=== PATIENT | male | born 1985 | race African-American/Black ===

== ENCOUNTER 2016-10-20 03:04 | Inpatient (IN) | payer OTHER ==
--- NOTE | 2016-10-20 04:23 | PDOC ---
History of Present Illness - General History Source: Significant Other Exam Limitations: No Limitations, Other - History of Present Illness Initial Comments: 10/20/16 04:54 The patient is a 31 year old male with no significant past medical history who presents to the ED for nausea and vomiting prior to arrival. Patient is a poor historian as he is currently somewhat somnolent during presentation and h/o is obtained by patients girlfriend, at bedside. According to the girlfriend, patient was eating [employer] about 1 hour prior to arrival when he began to have a bilateral headache with nausea and subsequent vomiting x3 and nonbloody diarrhea. Denies abdominal pain. Patient also has complaints of SOB and left leg pain. States he has been hospitalized in 2008 for left leg cellulitis. Denies lightheadedness, diaphoresis, fever, chills, cough, or chest pain. Allergies: NKDA Social History: Current smoker (ppd). No alcohol or drug use reported. Past Surgical History: None reported PCP: None reported <Teena Samuel - Last Filed: 10/20/16 04:55> - General History Source: Patient <DonaldAlessandro nino - Last Filed: 10/20/16 06:27> - General Chief Complaint: Pain Stated Complaint: PAIN IN LEFT LEG Time Seen by Provider: 10/20/16 04:21 Past History <Teena Samuel - Last Filed: 10/20/16 04:55> - Psycho/Social/Smoking Cessation Hx Suicidal Ideation: No Smoking History: Current every day smoker Have you smoked in the past 12 months: Yes Number of Cigarettes Smoked Daily: 10 Information on smoking cessation initiated: Yes 'Breaking Loose' booklet given: 07/29/15 Hx Alcohol Use: No Drug/Substance Use Hx: No Substance Use Type: None <Alessandro Pemberton - Last Filed: 10/20/16 06:27> - Past Medical History Allergies/Adverse Reactions: Allergies Allergy/AdvReac Type Severity Reaction Status Date / Time shrimp Allergy Swelling Verified 10/20/16 04:20 Home Medications: Ambulatory Orders NK [No Known Home Medication] 05/06/16 Review of Systems - Review of Systems Able to Perform ROS?: Yes Comments:: 10/20/16 04:54 CONSTITUTIONAL: Absent: fever, no chills, no fatigue EYES: Absent: visual changes ENT: Absent: ear pain, no sore throat CARDIOVASCULAR: Absent: chest pain, no palpitations RESPIRATORY: +SOB Absent: cough GI: +nausea, vomiting, diarrhea Absent: abdominal pain, no constipation GENITOURINARY: Absent: dysuria, no frequency, no hematuria MUSCULOSKELETAL: +left leg pain Absent: back pain, no arthralgia SKIN: Absent: rash NEURO: +bilateral headache <Teena Samuel - Last Filed: 10/20/16 04:55> *Physical Exam - Vital Signs Last Vital Signs Temp Pulse Resp BP Pulse Ox 109 H 18 109/69 96 10/20/16 03:16 10/20/16 03:16 10/20/16 03:16 10/20/16 03:16 - Physical Exam Comments: 10/20/16 04:55 GENERAL: Well-appearing, well-nourished. No apparent distress. HEENT: Normocephalic, atraumatic. PERRL, EOM intact. CARDIOVASCULAR: Normal S1, S2. Regular rate and rhythm. PULMONARY: Clear to auscultation bilaterally. ABDOMEN: Soft, non-distended, non-tender. EXTREMITIES: Normal ROM in all four extremities. Mild left calf tenderness, erythematous, no open wounds, firm. No gross deformities. SKIN: Warm, dry. No rash NEUROLOGICAL: Somnolent, but arousable. No focal neurological deficits. <Teena Samuel - Last Filed: 10/20/16 04:55> - Vital Signs Last Vital Signs Temp Pulse Resp BP Pulse Ox 109 H 18 109/69 96 10/20/16 03:16 10/20/16 03:16 10/20/16 03:16 10/20/16 03:16 <Alessandro Pemberton - Last Filed: 10/20/16 06:27> ED Treatment Course - LABORATORY CBC & Chemistry Diagram: 10/20/16 04:42 10/20/16 04:42 - ADDITIONAL ORDERS Additional order review: 10/20/16 04:42 RBC 5.12 MCV 82.1 MCHC 32.5 RDW 13.9 MPV 7.1 L Neutrophils % 87.4 H D Lymphocytes % 6.3 L D Monocytes % 5.6 Eosinophils % 0.3 D Basophils % 0.4 <Teena Samuel - Last Filed: 10/20/16 04:55> - LABORATORY CBC & Chemistry Diagram: 10/20/16 04:42 10/20/16 04:42 <Alessandro Pemberton - Last Filed: 10/20/16 06:27> Medical Decision Making - Medical Decision Making 10/20/16 06:27 Dr. Pemberton: The scribe's documentation has been prepared under my direction and personally reviewed by me in its entirery. I confirm that the note above accurately reflects all work, treatment, procedures, and medical decision making performed by me. <Alessandro Pemberton - Last Filed: 10/20/16 06:27> *DC/Admit/Observation/Transfer - Attestations Scribe Attestion: 10/20/16 04:55 Documentation prepared by Teena Samuel, acting as manager medical writing for Alessandro Pemberton MD/DO. <Teena Samuel - Last Filed: 10/20/16 04:55> - Discharge Dispostion Admit: Yes <Alessandro Pemberton - Last Filed: 10/20/16 06:27> Diagnosis at time of Disposition: Left leg cellulitis
[2016-10-20] MEDS ORDERED: CEFAZOLIN 2 GM in DEXTROSE 5%-WATER - 50 ML IVPB ONE (04:27)
[2016-10-20] MEDS ORDERED: KETOROLAC TROMETHAMINE 30 MG/1 ML VIAL IVPUSH ONE ×2 (04:27→15:49)
[2016-10-20] MEDS ORDERED: KETOROLAC TROMETHAMINE 30 MG/1 ML VIAL ONE (04:34)
[2016-10-20] MEDS ORDERED: CEFAZOLIN (PRE-DOCKED) 50 ML IVPB ONE (04:34)
[2016-10-20 04:46] LABS: BASOPHIL 0.4 % (0-2.0); EOSINOPHIL 0.3 % (0-4.5); MCH 26.7 pg (25.7-33.7); MCHC 32.5 g/dl (32.0-35.9); MEAN CELL VOLUME 82.1 fl (80-96); MEAN PLT VOLUME 7.1 fl (7.5-11.1); NEUTROPHILS 87.4 % (42.8-82.8); PLATELET COUNT 256 K/MM3 (134-434); RDW 13.9 % (11.9-15.9); WHITE BLOOD COUNT 20.9 K/mm3 (4.0-10.0)
[2016-10-20] MEDS ORDERED: ONDANSETRON 4 MG/2 ML VIAL IVPUSH STA (04:47)
[2016-10-20 04:58] LABS: INR 1.14 (0.82-1.09); PROTHROMBIN TIME (PATIENT) 12.6 SEC (9.98-11.88)
[2016-10-20] MEDS ORDERED: ONDANSETRON 4 MG/2 ML VIAL ONE (05:02)
[2016-10-20 05:08] LABS: ALBUMIN 3.8 g/dl (3.4-5.0); ANION GAP 10 (8-16); BILIRUBIN,TOTAL 0.5 mg/dL (0.2-1.0); CO2 26 mmol/L (21-32); COCKROFT - GAULT 127.57; CREATININE 1.2 mg/dL (0.7-1.3); GLUCOSE,RANDOM 112 mg/dL (74-106); SGOT/AST 19 U/L (15-37); SGPT/ALT 35 U/L (12-78); TOT PROT 7.2 g/dl (6.4-8.2)
[2016-10-20 05:09] LABS: ALK PHOS 60 U/L (45-117)
--- NOTE | 2016-10-20 08:37 | HP ---
CHIEF COMPLAINT: " Left leg pain, nausea, vomiting" PCP: No PCP HISTORY OF PRESENT ILLNESS: Patient is a 31 year old male with significant past medical history of recurrent cellulitis of left leg presented to the ED with the chief complaints of severe left leg pain, nausea and vomiting. As per the patient, he was apparently well until yesterday evening, when he developed nausea and several episodes of vomiting soon after he ate chicken from [facility]. Vomitus was non projectile, non bilious, non bloody, containing mainly food particles. Patient mentions his girlfriend who ate the chicken vomited few times. Patient denies abdominal pain. Nausea and vomiting has resolved now in the ED. Had one episode of loose stool in the ER which didn't contain blood. Patient developed left leg pain last night that woke him up at 2am, pain started from the left thigh radiating pain was intermittent, non radiating, 10/ 10 in intensity, burning in nature, no relieving or aggravating factors. Didn't notice any change in the color of the leg. Since patient had cellulitis of the left leg in the past, he was worried he might have developed it again and came in to the ED this morning. Denies any tick bite, trauma, fungal infections. Did have chills, rigors and sweating but no fever, chest pain, sob, cough, palpitations. Bowel/Bladder habit normal. Sleep/Appetite normal prior the illness. ER course was notable for: (1) Afebrile, hemodynamically stable except for tachycardia, leukocytosis 20.9; H/H within normal limits (2) IV Cefazolin, Ketorolac, Zofran. Recent Travel: None PAST MEDICAL HISTORY: Recurrent h/o cellulitis of left leg. PAST SURGICAL HISTORY: None Social History: Smokinpack/day x teenager Alcohol: 1pint every alternate days. Drugs: Denies Family History: Mother: DM and HTN Allergies shrimp Allergy (Verified 10/20/16 04:20) Swelling HOME MEDICATIONS: Home Medications Medication Instructions Recorded NK [No Known Home Medication] 05/06/16 REVIEW OF SYSTEMS CONSTITUTIONAL: Present: chills, diaphoresis, rigors and sweating Absent: fever, generalized weakness, malaise, loss of appetite, weight change HEENT: Absent: rhinorrhea, nasal congestion, throat pain, throat swelling, difficulty swallowing, mouth swelling, ear pain, eye pain, visual changes CARDIOVASCULAR: Absent: chest pain, syncope, palpitations, irregular heart rate, lightheadedness , peripheral edema RESPIRATORY: Absent: cough, shortness of breath, dyspnea with exertion, orthopnea, wheezing, stridor, hemoptysis GASTROINTESTINAL: Present: nausea, vomiting Absent: abdominal pain, abdominal distension, diarrhea, constipation, melena, hematochezia GENITOURINARY: Absent: dysuria, frequency, urgency, hesitancy, hematuria, flank pain, genital pain MUSCULOSKELETAL: Present: Left leg pain Absent: myalgia, arthralgia, joint swelling, back pain, neck pain SKIN: Absent: rash, itching, pallor HEMATOLOGIC/IMMUNOLOGIC: Absent: easy bleeding, easy bruising, lymphadenopathy, frequent infections ENDOCRINE: Absent: unexplained weight gain, unexplained weight loss, heat intolerance, cold intolerance NEUROLOGIC: Absent: headache, focal weakness or paresthesias, dizziness, unsteady gait, seizure, mental status changes, bladder or bowel incontinence PSYCHIATRIC: Absent: anxiety, depression, suicidal or homicidal ideation, hallucinations. PHYSICAL EXAMINATION Vital Signs - 24 hr 10/20/16 06:52 Temperature 99.5 F GENERAL: Patient is a young male, lying comfortably in bed, Awake, alert, and fully oriented, in no acute distress. HEAD: Normal with no signs of trauma. EYES: EOM intact, no pallor or icterus EARS, NOSE, THROAT: Ears normal, nares patent, oropharynx clear without exudates. Moist mucous membranes. NECK: Normal range of motion, supple without lymphadenopathy, JVD, or masses. LUNGS: Breath sounds equal, clear to auscultation bilaterally. No wheezes, and no crackles. No accessory muscle use. HEART: Regular rate and rhythm, normal S1 and S2 without murmur, rub or gallop. ABDOMEN: Soft, nontender, not distended, normoactive bowel sounds, no guarding, no rebound, no masses. No hepatomegaly or splenomegaly. MUSCULOSKELETAL: Normal range of motion at all joints. No bony deformities or tenderness. No CVA tenderness. UPPER EXTREMITIES: 2+ pulses, warm, well-perfused. No cyanosis. No clubbing. No peripheral edema. RIGHT LOWER EXTREMITIES: 2+ pulses, warm, well-perfused. No calf tenderness. No peripheral edema. LEFT LOWER EXTREMITIES: Erythema starting from the mid calf to the left knee; increased warm as compared to the right leg; no wound, abrasions, slightly tender, slightly edematous calf, Homans sign negative, 2+ pulses, warm, well- perfused. NEUROLOGICAL: Cranial nerves II-XII intact. Normal speech. Gait not observed. PSYCHIATRIC: Cooperative. Good eye contact. Appropriate mood and affect. SKIN: Tattoos, Warm, dry, normal turgor, no rashes or lesions noted, normal capillary refill. ASSESSMENT/PLAN: Patient is a 31 year old male with significant past medical history of recurrent cellulitis of left leg presented to the ED with the chief complaints of severe left leg pain, nausea and vomiting. # Sepsis secondary to Cellulitis of the left leg Patient has a recurrent h/o cellulitis, developed pain of left leg last night , redness, swelling, slightly tender to palpation Afebrile, hemodynamically stable except for tachycardia, leukocytosis 20.9; H /H within normal limits Meets SIRS criteria In the ED, patient received IV Cefazolin, Ketorolac, Zofran. Admitted in Med-Surg IV NS @ 83 mls/hr IV Ampicillin/Sulbactam 1.5 gm Q6H Day 1 IV Clindamycin 300mg Q6H Day 1 Ordered [id number] ruled out diabetes is not the cause for recurrent cellulitis Blood culture pending HIV to be ordered after consent Urine toxicology pending In the past, patient didn't grow any microorganisms in the blood culture # Alcohol abuse Counseling and discussed in depth about cutting down. Thiamine IV 200mg stat and PO 100mg once in the evening. Thiamine 100mg PO daily from tomorrow Folic acid 1mg Daily # Active smoker Smoking cessation counseling Nicotine patch 21 daily # FEN IV NS @ 83mls/hr Electrolytes to be repeated tomorrow # Prophylaxis For DVT: Heparin 5000 u sq BID For GI: Not indicated # Code Status: Full Code # Dispo: Admitted in Med-Surg. Duration of stay unknown. Illness, Investigation and Plan of care explained to the patient. He verbalized understanding. Case discussed with Dr. Mcmanus. Visit type - Emergency Visit Emergency Visit: Yes ED Registration Date: 10/20/16 Care time: The patient presented to the Emergency Department on the above date and was hospitalized for further evaluation of their emergent condition. - New Patient This patient is new to me today: Yes Date on this admission: 10/20/16 - Critical Care Critical Care patient: No
--- NOTE | 2016-10-20 08:42 | PN ---
Teaching Attending Note Name of Resident: Shaheed Montes De Oca ATTENDING PHYSICIAN STATEMENT I saw and evaluated the patient. I reviewed the resident's note and discussed the case with the resident. I agree with the resident's findings and plan as documented. SUBJECTIVE: CC: L leg pain and swelling HPI: 31 y/o man with h/o L leg ellulitis x 2 before , and no other PMH , who presented with pain and swelling in L leg which started at 2 am last night . he had fever, chills and sweating on his way here, other than that no fever at home , . He denies any bites, cute, wounds or trauma to his leg. he had one episode of soft stool last night , no blood or abd pain . He drinks a bottle of hard liquor q 2 days , last drink was last night . smokes 1PPd OBJECTIVE: VS reviewed NAD , AAOx3. HEENT: MMM, no facial droop, has no LAP inneck. EOMI, round equal reactive Pupils CV: RRR, no MRG Lungs : CTAB Abd : soft, ND , nL BS , NT Ext : L leg with area or brownish discoloration , and increased warmth on anterior banks extending from below th eknee to above ankle , with involvement on lower posterior leg. no erythema or edema on RLE . DP 2+ b/l. L dorsal foot edema . no evidence of fungal infection among toes b/l. has dry skin on both feet ASSESSMENT AND PLAN: 31 y/o man with h/o L leg cellulitis x 2 before , and no other PMH , who presented with pain and swelling in L leg and was found to have sepsis from LLE cellulitis 1- Sepsis 2/2 LLE cellulitis : vital signs are stable. no evidence of discharge , or wounds. in past he had no positive cultures to guid our Abx treatment - check lactic acid - start IV abx, unasyn and clinda - follow blood cx done in ER. - gentle hydration till am 2- Alcohol dependence : no signs of withdrawal, will monitor for any signs give thiamine and folate and MVT 3-nicotine dependence : nicotine patch. counseled . 4- dispo : HLOC. wants to sign AMA in Am. explained risk of bacteremia, worsening sepsis ,endocarditis and , he verbalized to understand risks .
[2016-10-20] MEDS ORDERED: THIAMINE HCL 100 MG TABLET (FP) PO SCH ×2 (10:00→18:00)
[2016-10-20] MEDS ORDERED: THIAMINE HCL 200 MG/2 ML VIAL IVPB ONE (10:00)
[2016-10-20] MEDS: SODIUM CHLORIDE 1,000 ML IV SCH ×2 (12:41→16:12)
[2016-10-20] MEDS: FOLIC ACID 1 MG TABLET (FP) PO SCH (12:41)
[2016-10-20] MEDS: CLINDAMYCIN IVPB 300 MG in DEXTROSE 5%-WATER - 48 ML IVPB SCH ×3 (13:00→23:07)
[2016-10-20 13:05] VITALS: BMI 34.9
[2016-10-20 13:17] LABS: URINE MARIJUANA THC NEGATIVE ng/ml (CUTOFF=50)
[2016-10-20 13:34] LABS: URINE APPEARANCE CLEAR; URINE BILIRUBIN NEGATIVE (NEGATIVE); URINE BLOOD NEGATIVE (NEGATIVE); URINE COLOR YELLOW; URINE GLUCOSE (UA) NEGATIVE (NEGATIVE); URINE KETONE NEGATIVE (NEGATIVE); URINE LEUK ESTERASE NEGATIVE (NEGATIVE); URINE NITRITE NEGATIVE (NEGATIVE); URINE PROTEIN NEGATIVE (NEGATIVE); URINE UROBILINOGEN NEGATIVE E.U./dl (0.2-1.0)
[2016-10-20] MEDS: AMPICILLIN NA/SULBACTAM NA 100 ML IVPB SCH ×2 (15:15→15:22)
[2016-10-20] MEDS: NICOTINE 21 MG/24 HOURS TOPICAL PATCH TD SCH (16:23)
[2016-10-20] MEDS: HEPARIN NA (PORCINE) 5,000 UNITS/ML 1ML VIAL SQ SCH ×2 (16:23→23:09)
[2016-10-20 17:54] LABS: HIV 1 & 2 AB NEGATIVE; HIV 1 AGp24 NEGATIVE
[2016-10-20] MEDS ORDERED: THIAMINE HCL 100 MG TABLET (FP) PO ONE (18:00)
[2016-10-20] MEDS: AMPICILLIN NA/SULBACTAM NA 1.5 GM/100 ML PRE-DOCKED IVPB SCH (23:57)
[2016-10-21] MEDS: AMPICILLIN NA/SULBACTAM NA 100 ML IVPB SCH (02:53)
[2016-10-21] MEDS: AMPICILLIN NA/SULBACTAM NA 1.5 GM/100 ML PRE-DOCKED IVPB SCH ×4 (03:11→22:25)
[2016-10-21] MEDS: CLINDAMYCIN IVPB 300 MG in DEXTROSE 5%-WATER - 48 ML IVPB SCH ×4 (03:11→21:45)
[2016-10-21 07:58] LABS: MCH 27.9 pg (25.7-33.7); MCHC 33.4 g/dl (32.0-35.9); MEAN CELL VOLUME 83.4 fl (80-96); MEAN PLT VOLUME 7.3 fl (7.5-11.1); PLATELET COUNT 219 K/MM3 (134-434); RDW 14.2 % (11.9-15.9); WHITE BLOOD COUNT 11.1 K/mm3 (4.0-10.0)
--- NOTE | 2016-10-21 08:03 | PN ---
Physical Exam: SUBJECTIVE: Patient seen and examined at bed side this morning. No complaints. Denies chest pain, sob, cough, palpitation, abdominal pain, nausea, vomiting, fever, chills, rigors, sweating, leg pain or increased swelling. Bowel/Bladder habit normal. Sleep/Appetite normal. This afternoon patient wanted to sign out AMA. But after explaining the risks of leaving he decided to stay overnight. Patient has been explained that if he is afebrile, leukocytosis improves and symptomatically gets better, can be sent home on PO antibiotics tomorrow. OBJECTIVE: Vital Signs Period Temp Pulse Resp BP Sys/Espinoza Pulse Ox Last 24 Hr 98.8 F-99.3 F 85-100 16-20 109-140/60-84 98-100 GENERAL: Patient is a young male, lying comfortably in bed, Awake, alert, and fully oriented, in no acute distress. HEAD: Normal with no signs of trauma. EYES: EOM intact, no pallor or icterus EARS, NOSE, THROAT: Ears normal, nares patent, oropharynx clear without exudates. Moist mucous membranes. NECK: Normal range of motion, supple without lymphadenopathy, JVD, or masses. LUNGS: Breath sounds equal, clear to auscultation bilaterally. No wheezes, and no crackles. No accessory muscle use. HEART: Regular rate and rhythm, normal S1 and S2 without murmur, rub or gallop. ABDOMEN: Soft, nontender, not distended, normoactive bowel sounds, no guarding, no rebound, no masses. No hepatomegaly or splenomegaly. MUSCULOSKELETAL: Normal range of motion at all joints. No bony deformities or tenderness. No CVA tenderness. UPPER EXTREMITIES: 2+ pulses, warm, well-perfused. No cyanosis. No clubbing. No peripheral edema. RIGHT LOWER EXTREMITIES: 2+ pulses, warm, well-perfused. No calf tenderness. No peripheral edema. LEFT LOWER EXTREMITIES: Erythema starting from the mid calf to the left knee; increased warm as compared to the right leg; no wound, abrasions, slightly tender, slightly edematous calf, Homans sign negative, 2+ pulses, warm, well- perfused. NEUROLOGICAL: Cranial nerves II-XII intact. Normal speech. Gait not observed. PSYCHIATRIC: Cooperative. Good eye contact. Appropriate mood and affect. SKIN: Tattoos, Warm, dry, normal turgor, no rashes or lesions noted, normal capillary refill. Laboratory Results - last 24 hr 10/20/16 10/20/16 10/20/16 09:53 11:00 13:00 Hemoglobin A1c % 5.6 Lactic Acid 1.580 Urine Color Yellow Urine Appearance Clear Urine pH 8.0 Ur Specific [place] 1.015 Urine Protein Negative Urine Glucose (UA) Negative Urine Ketones Negative Urine Blood Negative Urine Nitrite Negative Urine Bilirubin Negative Urine Urobilinogen Negative Ur Leukocyte Esterase Negative Opiates Screen Methadone Screen Barbiturate Screen Phencyclidine Screen Ur Amphetamines Screen MDMA (Ecstasy) Screen Benzodiazepines Screen Cocaine Screen U Marijuana (THC) Screen HIV 1&2 Antibody Screen HIV P24 Antigen 10/20/16 10/20/16 13:00 16:29 Hemoglobin A1c % Lactic Acid Urine Color Urine Appearance Urine pH Ur Specific [place] Urine Protein Urine Glucose (UA) Urine Ketones Urine Blood Urine Nitrite Urine Bilirubin Urine Urobilinogen Ur Leukocyte Esterase Opiates Screen Negative Methadone Screen Negative Barbiturate Screen Negative Phencyclidine Screen Negative Ur Amphetamines Screen Negative MDMA (Ecstasy) Screen Negative Benzodiazepines Screen Negative Cocaine Screen Negative U Marijuana (THC) Screen Negative HIV 1&2 Antibody Screen Negative HIV P24 Antigen Negative Active Medications Generic Name Dose Route Start Last Admin Trade Name Freq PRN Reason Stop Dose Admin Ampicillin Sodium/Sulbactam Sodium 1.5 gm 10/20/16 23:45 10/21/16 03:11 Unasyn 1.5 Gm (Pre-Docked) IVPB 1.5 gm Q6H-IV ROQUE Administration Folic Acid 1 mg 10/20/16 10:00 10/20/16 12:41 Folic Acid - PO 1 mg DAILY ROQUE Administration Heparin Sodium (Porcine) 5,000 unit 10/20/16 13:30 10/20/16 23:09 Heparin - SQ 5,000 unit BID ROQUE Administration Sodium Chloride 1,000 mls @ 83 mls/hr 10/20/16 08:30 10/20/16 16:12 Normal Saline - IV 83 mls/hr ASDIR ROQUE Administration Clindamycin Phosphate 300 mg/ 50 mls @ 104 mls/hr 10/20/16 09:45 10/21/16 03:11 Dextrose IVPB 104 mls/hr Q6H-IV ROQUE Administration Nicotine 21 mg 10/20/16 12:45 10/20/16 16:23 Nicoderm Patch - TD Not Given DAILY ROQUE Thiamine HCl 100 mg 10/21/16 10:00 Vitamin B1 - PO DAILY ROQUE ASSESSMENT/PLAN: Patient is a 31 year old male with significant past medical history of recurrent cellulitis of left leg presented to the ED with the chief complaints of severe left leg pain, nausea and vomiting. # Sepsis secondary to Cellulitis of the left leg Patient feels much better today than yesterday. However, examination of the left leg remains the same as yesterday. Admitted in Med-Surg Leukocytosis improved today 20.9----> 11.1 IV NS @ 83 mls/hr IV Ampicillin/Sulbactam 1.5 gm Q6H Day 2 IV Clindamycin 300mg Q6H Day 2 Ordered [id number] ruled out diabetes is not the cause for recurrent cellulitis Blood culture x 2 negative HIV Negative Urine toxicology negative In the past, patient didn't grow any microorganisms in the blood culture # Alcohol abuse Counseling and discussed in depth about cutting down. Thiamine IV 200mg stat and PO 100mg once in the evening. Thiamine 100mg PO daily from tomorrow Folic acid 1mg Daily # Active smoker Smoking cessation counseling Nicotine patch 21 daily # FEN IV NS @ 83mls/hr Electrolytes to be repeated tomorrow # Prophylaxis For DVT: Heparin 5000 u sq BID For GI: Not indicated # Code Status: Full Code # Dispo: Admitted in Med-Surg. Duration of stay unknown. Illness, Investigation and Plan of care explained to the patient. He verbalized understanding. Case seen and discussed with Dr. Mcmanus. Visit type - Emergency Visit Emergency Visit: Yes ED Registration Date: 10/20/16 Care time: The patient presented to the Emergency Department on the above date and was hospitalized for further evaluation of their emergent condition. - New Patient This patient is new to me today: No - Critical Care Critical Care patient: No - Discharge Referral Referred to [facility] Med [facility].C[facility] Yes Physician Referral: Shad Alvares MD (Int Med)
[2016-10-21 08:41] LABS: ALBUMIN 3.1 g/dl (3.4-5.0); ALK PHOS 58 U/L (45-117); ANION GAP 11 (8-16); BILIRUBIN,TOTAL 0.4 mg/dL (0.2-1.0); CALCIUM 8.3 mg/dL (8.5-10.1); CO2 25 mmol/L (21-32); COCKROFT - GAULT 151.04; GLUCOSE,RANDOM 98 mg/dL (74-106); SGOT/AST 16 U/L (15-37); SGPT/ALT 28 U/L (12-78)
[2016-10-21] MEDS ORDERED: PT OWN MED DRAWER 7, Y5N ONE ×2 (09:38→16:13)
[2016-10-21] MEDS: SODIUM CHLORIDE 1,000 ML IV SCH ×2 (09:54→22:25)
[2016-10-21] MEDS: THIAMINE HCL 100 MG TABLET (FP) PO SCH (09:55)
[2016-10-21] MEDS: HEPARIN NA (PORCINE) 5,000 UNITS/ML 1ML VIAL SQ SCH ×2 (09:55→21:45)
[2016-10-21] MEDS: FOLIC ACID 1 MG TABLET (FP) PO SCH (09:55)
[2016-10-21] MEDS: NICOTINE 21 MG/24 HOURS TOPICAL PATCH TD SCH (09:56)
--- NOTE | 2016-10-21 15:30 | MSN ---
Progress Note (SOAP) - Subjective Chief Complaint: Left LE cellulitis History of Present Illness: Angel is a 31 y/o m with PMHx LLE cellulitis who is admitted for sepsis 2/2 LLE cellulitis. Patient has no complaints this morning, "feels fine." Denies f/c /abd pain/julien/hematuria/LLE pain/abd pain. - Current Medications Current Medications: Active Medications Ampicillin Sodium/Sulbactam Sodium (Unasyn 1.5 Gm (Pre-Docked)) 1.5 gm IVPB Q6H -IV [facility] Last Admin: 10/21/16 10:42 Dose: 1.5 gm Folic Acid (Folic Acid -) 1 mg PO DAILY [facility] Last Admin: 10/21/16 09:55 Dose: 1 mg Heparin Sodium (Porcine) (Heparin -) 5,000 unit SQ BID [facility] Last Admin: 10/21/16 09:55 Dose: 5,000 unit Sodium Chloride (Normal Saline -) 1,000 mls @ 83 mls/hr IV ASDIR [facility] Last Admin: 10/21/16 09:54 Dose: Not Given Clindamycin Phosphate 300 mg/ (Dextrose) 50 mls @ 104 mls/hr IVPB Q6H-IV [facility] Last Admin: 10/21/16 09:55 Dose: 104 mls/hr Nicotine (Nicoderm Patch -) 21 mg TD DAILY [facility] Last Admin: 10/21/16 09:56 Dose: Not Given Thiamine HCl (Vitamin B1 -) 100 mg PO DAILY [facility] Last Admin: 10/21/16 09:55 Dose: 100 mg - Objective Vital Signs: Vital Signs Temperature 98.2 F 10/21/16 15:02 Pulse Rate 77 10/21/16 15:02 Respiratory Rate 18 10/21/16 15:02 Blood Pressure 154/96 10/21/16 15:02 O2 Sat by Pulse Oximetry (%) 99 10/20/16 22:00 Constitutional: Yes: No Distress, Calm Eyes: Yes: EOM Intact HENT: Yes: Normocephalic Neck: Yes: Trachea Midline Cardiovascular: Yes: Regular Rate and Rhythm. No: Murmur Respiratory: Yes: Regular, CTA Bilaterally. No: Wheezes Gastrointestinal: Yes: Normal Bowel Sounds, Soft. No: Tenderness, Rebound Peripheral Pulses WNL: Yes Peripheral Pulses: Left Radial: 2+, Right Radial: 2+, Left Doralis Pedis: 2+, Right Dorsalis Pedis: 2+ Edema: No Integumentary: Yes: Erythema (LLE Cellulitis has not extended passed margins, warm to touch) Labs Lab Results: CBC,CMP WBC 11.1 K/mm3 (4.0-10.0) H D 10/21/16 07:00 RBC 4.62 M/mm3 (4.00-5.60) 10/21/16 07:00 Hgb 12.9 GM/dL (11.7-16.9) 10/21/16 07:00 Hct 38.5 % (35.4-49) 10/21/16 07:00 MCV 83.4 fl (80-96) 10/21/16 07:00 MCHC 33.4 g/dl (32.0-35.9) 10/21/16 07:00 RDW 14.2 % (11.9-15.9) 10/21/16 07:00 Plt Count 219 K/MM3 (134-434) 10/21/16 07:00 MPV 7.3 fl (7.5-11.1) L 10/21/16 07:00 Neutrophils % 87.4 % (42.8-82.8) H D 10/20/16 04:42 Lymphocytes % 6.3 % (8-40) L D 10/20/16 04:42 Monocytes % 5.6 % (3.8-10.2) 10/20/16 04:42 Eosinophils % 0.3 % (0-4.5) D 10/20/16 04:42 Basophils % 0.4 % (0-2.0) 10/20/16 04:42 Sodium 144 mmol/L (136-145) 10/21/16 07:00 Potassium 3.8 mmol/L (3.5-5.1) 10/21/16 07:00 Chloride 108 mmol/L (98-107) H 10/21/16 07:00 Carbon Dioxide 25 mmol/L (21-32) 10/21/16 07:00 Anion Gap 11 (8-16) 10/21/16 07:00 BUN 14 mg/dL (7-18) 10/21/16 07:00 Creatinine 1.0 mg/dL (0.7-1.3) 10/21/16 07:00 Creat Clearance w eGFR > 60 (>60) 10/21/16 07:00 Random Glucose 98 mg/dL (74-106) 10/21/16 07:00 Hemoglobin A1c % 5.6 % (4.8-6.0) 10/20/16 11:00 Lactic Acid 1.580 mmol/L (0.4-2.0) 10/20/16 09:53 Calcium 8.3 mg/dL (8.5-10.1) L 10/21/16 07:00 Total Bilirubin 0.4 mg/dL (0.2-1.0) 10/21/16 07:00 AST 16 U/L (15-37) 10/21/16 07:00 ALT 28 U/L (12-78) 10/21/16 07:00 Alkaline Phosphatase 58 U/L (45-117) 10/21/16 07:00 Total Protein 6.0 g/dl (6.4-8.2) L 10/21/16 07:00 Albumin 3.1 g/dl (3.4-5.0) L 10/21/16 07:00 Assessment/Plan Angel is a 31 y/o m with PMHx LLE cellulitis who is admitted for sepsis 2/2 LLE cellulitis. Dispo: CBC tmrw am, if cellulitis improves and wbc wnl can discharge pt home on oral abx 1. Sepsis 2/2 LLE cellulitis; improving-- pt no longer septic, no tenderness to palpation along LLE, erythema has not expanded passed margins -WBC 11.1 (20) -Continue IV Unasyn 1.5g q6h and IV Clindamycin 300mg q6 -IVF NS 83cc/hr -blood and urine cx pending -HIV neg, Utox neg, UA not indicative of infection, HbA1c 5.6% -CBC tmrw am 2. Alcohol abuse; not in withdrawal -Folic Acid 1mg qd -Thiamine 100mg qd -benefits of cutting back have been discussed with pt 3. Active Smoker -1 ppd -Nicotine patch 21mg -benefits of smoking cessation have been discussed with pt 4. DVT ppx -5000U SQ qd
--- NOTE | 2016-10-21 18:33 | PN ---
Teaching Attending Note Name of Resident: Melonie Richards ATTENDING PHYSICIAN STATEMENT I saw and evaluated the patient. I reviewed the resident's note and discussed the case with the resident. I agree with the resident's findings and plan as documented. SUBJECTIVE: no fever or chills, feels better OBJECTIVE: NAD , AAOx3. HEENT: MMM, no facial droop CV: RRR, no MRG Lungs : CTAB Ext : L leg with area or brownish discoloration , and increased warmth on anterior banks extending from below the knee to above ankle , with involvement on lower posterior leg. no erythema or edema on RLE . DP 2+ b/l. L dorsal foot edema . no evidence of fungal infection among toes b/l. has dry skin on both feet ASSESSMENT AND PLAN: 31 y/o man with h/o L leg cellulitis x 2 before , and no other PMH , who presented with pain and swelling in L leg and was found to have sepsis from LLE cellulitis 1- Sepsis 2/2 LLE cellulitis : improved . - cont unasyn and clinda - follow blood cx - dc IVF 2- Alcohol dependence : no signs of withdrawal, will monitor for any signs give thiamine and folate and MVT 3-nicotine dependence : nicotine patch. 4- dispo : HLOC. possible dc tomorrow :
[2016-10-21] MEDS ORDERED: ARTIFICIAL TEARS (POLYVINYL ALCOHOL 1.4%) OPTH DROPS OU PRN (20:23)
[2016-10-22] MEDS: AMPICILLIN NA/SULBACTAM NA 1.5 GM/100 ML PRE-DOCKED IVPB SCH ×2 (02:37→09:47)
[2016-10-22] MEDS: CLINDAMYCIN IVPB 300 MG in DEXTROSE 5%-WATER - 48 ML IVPB SCH ×2 (02:37→09:24)
[2016-10-22] MEDS ORDERED: ACETAMINOPHEN 325 MG TABLET (FP) PO PRN (05:30)
[2016-10-22 07:54] LABS: MCH 28.4 pg (25.7-33.7); MEAN CELL VOLUME 83.4 fl (80-96); MEAN PLT VOLUME 7.7 fl (7.5-11.1); PLATELET COUNT 214 K/MM3 (134-434); WHITE BLOOD COUNT 7.9 K/mm3 (4.0-10.0)
[2016-10-22 08:07] LABS: ALBUMIN 3.2 g/dl (3.4-5.0); ANION GAP 10 (8-16); CALCIUM 8.8 mg/dL (8.5-10.1); CO2 26 mmol/L (21-32); GLUCOSE,RANDOM 105 mg/dL (74-106)
[2016-10-22 08:12] LABS: ALK PHOS 52 U/L (45-117); BILIRUBIN,TOTAL 0.4 mg/dL (0.2-1.0); COCKROFT - GAULT 151.34; SGOT/AST 20 U/L (15-37); SGPT/ALT 33 U/L (12-78); TOT PROT 6.2 g/dl (6.4-8.2)
[2016-10-22 09:00] VITALS: BP 143/89; PULSE 74; TEMP 97.5
[2016-10-22] MEDS: THIAMINE HCL 100 MG TABLET (FP) PO SCH (09:24)
[2016-10-22] MEDS: FOLIC ACID 1 MG TABLET (FP) PO SCH (09:25)
[2016-10-22] MEDS: HEPARIN NA (PORCINE) 5,000 UNITS/ML 1ML VIAL SQ SCH (09:25)
[2016-10-22] MEDS: NICOTINE 21 MG/24 HOURS TOPICAL PATCH TD SCH (09:31)
--- NOTE | 2016-10-22 10:49 | DS ---
Physical Exam: SUBJECTIVE: Patient seen and examined at bed side. No complaints. Denies chest pain, sob, cough, palpitation, abdominal pain, nausea or vomiting. Bowel/ Bladder habit normal. Sleep/Appetite Normal. OBJECTIVE: Vital Signs Period Temp Pulse Resp BP Sys/Espinoza Pulse Ox Last 24 Hr 97.4 F-98.2 F 74-79 18-20 120-154/85-96 95-98 PHYSICAL EXAM GENERAL: Patient is a young male, lying comfortably in bed, Awake, alert, and fully oriented, in no acute distress. HEAD: Normal with no signs of trauma. EYES: EOM intact, no pallor or icterus EARS, NOSE, THROAT: Ears normal, nares patent, oropharynx clear without exudates. Moist mucous membranes. NECK: Normal range of motion, supple without lymphadenopathy, JVD, or masses. LUNGS: Breath sounds equal, clear to auscultation bilaterally. No wheezes, and no crackles. No accessory muscle use. HEART: Regular rate and rhythm, normal S1 and S2 without murmur, rub or gallop. ABDOMEN: Soft, nontender, not distended, normoactive bowel sounds, no guarding, no rebound, no masses. No hepatomegaly or splenomegaly. MUSCULOSKELETAL: Normal range of motion at all joints. No bony deformities or tenderness. No CVA tenderness. UPPER EXTREMITIES: 2+ pulses, warm, well-perfused. No cyanosis. No clubbing. No peripheral edema. RIGHT LOWER EXTREMITIES: 2+ pulses, warm, well-perfused. No calf tenderness. No peripheral edema. LEFT LOWER EXTREMITIES: Erythema starting from the mid calf to the left knee; increased warm as compared to the right leg; no wound, abrasions, slightly tender, slightly edematous calf, improved than yesterday. Homans sign negative, 2+ pulses, warm, well-perfused. NEUROLOGICAL: Cranial nerves II-XII intact. Normal speech. Gait not observed. PSYCHIATRIC: Cooperative. Good eye contact. Appropriate mood and affect. SKIN: Tattoos, Warm, dry, normal turgor, no rashes or lesions noted, normal capillary refill. LABS Laboratory Results - last 24 hr 10/22/16 10/22/16 07:25 07:25 WBC 7.9 RBC 4.46 Hgb 12.7 Hct 37.2 MCV 83.4 MCHC 34.0 RDW 14.0 Plt Count 214 MPV 7.7 Sodium 143 Potassium 4.2 Chloride 107 Carbon Dioxide 26 Anion Gap 10 BUN 10 D Creatinine 1.0 Creat Clearance w eGFR > 60 Random Glucose 105 Calcium 8.8 Total Bilirubin 0.4 AST 20 D ALT 33 Alkaline Phosphatase 52 Total Protein 6.2 L Albumin 3.2 L HOSPITAL COURSE: Date of Admission:10/20/16 Date of Discharge: 10/22/16 Patient is a 31 year old male with significant past medical history of recurrent cellulitis of left leg presented to the ED with the chief complaints of severe left leg pain, nausea and vomiting admitted with the diagnosis of Sepsis secondary to Cellulitis of the left leg. Met SIRS Criteria with a source of infection. Was afebrile and hemodynamically stable throughout his hospital stay. Admitted in Med-Surg and treated with IV Ampicillin/Sulbactam 1.5 gm Q6H and IV Clindamycin 300mg Q6H. Has a h/o recurrent cellulitis so the possible causes like Diabetes ([id number]-4.6) and HIV ( Negative) were ruled out. Blood culture x 2 were negative. In the past admissions, patient didn't grow any microorganisms in the blood culture. On discharge, patient was given Augmentin 875/125 mg PO BID x 10 days and Clindamycin 300 mg Q8H x 10 days (Instructed to take Augmentin from this evening and Clindamycin from 5pm this evening) Alcohol abuse: Counseling and discussed in depth about cutting down.Thiamine 100mg PO daily and Folic acid 1mg Daily was given. Had no alcohol withdrawal symptoms. Active smoker: Didn't have withdrawal. Smoking cessation counseling. Nicotine patch 21 daily was ordered but patient refused to use. As per the patient, he doesn't have a primary physician, hence assigned Dr. Alvares upon discharge. Plan of care explained to the patient. He verbalized understanding. Case discussed with Dr. Mcmanus. Minutes to complete discharge: 45 Discharge Summary Reason For Visit: LEFT LEG CELLULITIS Current Active Problems Left leg cellulitis (Acute) Condition: Improved - Instructions Diet, Activity, Other Instructions: You were admitted due to sepsis secondary to cellulitis of the left leg. It is improving. Please take the oral antibiotics for 10 more days. Please take Augmentin from this evening two times a day for 10 days and Clindamycin starting from 5pm this evening every 8 hours for 10 days. Make sure to keep the area clean and dry. Since you do not have a primary doctor, we have assigned you to Dr. Alvares. Please f/up with Dr. Alvares in a week. Return to the Emergency Department if your symptoms get worse or if you develop any new symptoms. Referrals: Shad Alvares MD [Staff Physician] - Disposition: HOME - Home Medications Comprehensive Discharge Medication List: Ambulatory Orders Amoxicillin/Potassium Clav [Augmentin 875-125 Tablet] 1 each PO BID #20 tablet 10/22/16 Clindamycin [Cleocin -] 300 mg PO Q8H #30 capsule 10/22/16 This patient is new to me today: Yes Date on this admission: 10/30/16 Emergency Visit: Yes ED Registration Date: 10/20/16 Care time: The patient presented to the Emergency Department on the above date and was hospitalized for further evaluation of their emergent condition. Critical Care patient: No - Discharge Referral Referred to [facility] Yes Physician Referral: Shad Alvares MD (Int Med)
--- NOTE | 2016-10-22 10:52 | PN ---
Teaching Attending Note Name of Resident: Melonie Richards ATTENDING PHYSICIAN STATEMENT I saw and evaluated the patient. I reviewed the resident's note and discussed the case with the resident. I agree with the resident's findings and plan as documented. SUBJECTIVE: no fever or chills, no pain in L leg OBJECTIVE: NAD , AAOx3. CV: RRR, no MRG Lungs : CTAB Ext : L leg with area or brownish discoloration , which improved form before .still with minimal warmth . no erythema or edema on RLE . DP 2+ b/l. L dorsal foot edema . no evidence of fungal infection among toes b/l. has dry skin on both feet ASSESSMENT AND PLAN: 31 y/o man with h/o L leg cellulitis x 2 before , and no other PMH , who presented with pain and swelling in L leg and was found to have sepsis from LLE cellulitis 1- Sepsis 2/2 LLE cellulitis: significantly improved . leukocytosis has resolved and there is no more - switch to po augmentin and clinda for 10 more days. -blood cx neg to date 2- Alcohol dependence : no signs of withdrawal, 3-nicotine dependence :declined nicotine patch dc home given Dr. Dianelys stevens to establish care
== END 2016-10-22 11:10 | disposition home or self-care (01) | DRG 872 ==
LOC: JER 03:04 → JERBED 06:26 → UNDOADMIN 06:31 → J5S 15:13
PROVIDERS: ADMIT Internal Medicine; ATTEND Internal Medicine
DX: A41.9 Sepsis, unspecified organism (principal); L03.116 Cellulitis of left lower limb; R11.2 Nausea with vomiting, unspecified; R51 Headache; F17.200 Nicotine dependence, unspecified, uncomplicated; F10.20 Alcohol dependence, uncomplicated
CPT/HCPCS: 36415; 80053; 80307; 81003; 83036; 83605; 85025; 85027; 85610; 86850; 86900; 86901; 87040; 87086; 87389; 99285-25; J1644

== ENCOUNTER 2017-02-12 13:22 | Emergency (ER) | payer OTHER ==
[2017-02-12 13:29] VITALS: BP 142/83; PULSE 106; TEMP 98.3; BMI 32.8
[2017-02-12] MEDS ORDERED: KETOROLAC TROMETHAMINE 60 MG/2 ML VIAL IM ONE (14:15)
[2017-02-12] MEDS ORDERED: diazePAM 5 MG TABLET PO ONE (14:15)
[2017-02-12] MEDS ORDERED: KETOROLAC TROMETHAMINE 60 MG/2 ML VIAL ONE (14:16)
--- NOTE | 2017-02-12 14:16 | PDOC ---
History of Present Illness - General Chief Complaint: Back Pain Stated Complaint: LOWER BACK PAIN Time Seen by Provider: 02/12/17 13:59 History Source: Patient Exam Limitations: No Limitations - History of Present Illness Initial Comments: 02/12/17 14:19 02/12/17 14:24 My chief complaint: Lower back pain since yesterday History of present illness: Patient is a 31-year-old male with a history of lower back pain from high school football injury here today with lower back pain that radiates down his left buttocks to his left lateral leg. Patient denies any weakness of legs or any numbness of legs or any saddle anesthesia or incontinency. Patient denies doing any heavy lifting or exercise. Patient reports the pain is worse with walking and is presently an 8 out of 10. Patient also reports feels muscle spasming lower back. Patient reports taking ibuprofen yesterday that helps with the pain. Patient has not been followed by an orthopedist. Occurred: reports: yesterday Severity: reports: moderate Pain Location: reports: back (LOWER BACK PAIN RADIATES DOWN LEFT BUTTOCK TO LEFT LATERAL THIGH) Method of Injury: Yes: unknown Modifying Factors: improves with: None Loss of Consciousness: no loss of consciousness Associated Symptoms (Fall): denies symptoms Past History - Past Medical History Allergies/Adverse Reactions: Allergies Allergy/AdvReac Type Severity Reaction Status Date / Time shrimp Allergy Swelling Verified 02/12/17 13:29 Home Medications: Ambulatory Orders Cyclobenzaprine HCl [Flexeril 10 mg] 10 mg PO Q8H PRN #20 tablet 02/12/17 Naproxen [Naprosyn -] 500 mg PO BID PRN #14 tablet 02/12/17 - Surgical History Orthopedic Surgery: Yes (RT LEG FX) - Immunization History Immunization Up to Date: Yes - Psycho/Social/Smoking Cessation Hx Anxiety: No Suicidal Ideation: No Smoking History: Current every day smoker Have you smoked in the past 12 months: Yes Number of Cigarettes Smoked Daily: 5 Information on smoking cessation initiated: Yes 'Breaking Loose' booklet given: 02/12/17 Hx Alcohol Use: Yes (SOCIAL) Drug/Substance Use Hx: No Substance Use Type: None Hx Substance Use Treatment: No Review of Systems - Review of Systems Able to Perform ROS?: Yes Constitutional: No: Symptoms Reported HEENTM: No: Symptoms Reported Respiratory: No: Symptoms reported Cardiac (ROS): No: Symptoms Reported ABD/GI: No: Symptoms Reported : No: Symptoms Reported Musculoskeletal: Yes: Back Pain (LOWER BACK RADIATES DOWN LEFT BUTTOCK TO LEFT LATERAL THIGH) Integumentary: No: Symptoms Reported Neurological: No: Symptoms reported *Physical Exam - Vital Signs Last Vital Signs Temp Pulse Resp BP Pulse Ox 98.3 F 106 H 20 142/83 97 02/12/17 13:26 02/12/17 13:26 02/12/17 13:02/12/17 13:02/12/17 13:26 - Physical Exam General Appearance: Yes: Appropriately Dressed Respiratory/Chest: positive: Lungs Clear, Normal Breath Sounds. negative: Chest Tender, Respiratory Distress Cardiovascular: positive: Regular Rhythm, Regular Rate, S1, S2 Vascular Pulses: Dorsalis-Pedis (R): 4+, Doralis-Pedis (L): 4+ Musculoskeletal: positive: Normal Inspection, Decreased Range of Motion (FROM WAIST WITH FLEXION SLIGHT ), Muscle Spasm (LEFT LUMBAR PARASPINAL MUSCLES ). negative: CVA Tenderness, CVA Tenderness (R), CVA Tenderness (L), Vertebral Tenderness Extremity: positive: Normal Capillary Refill, Normal Inspection, Normal Range of Motion Integumentary: positive: Normal Color Neurologic: positive: Alert, Normal Response, Motor Strength 5/5 (B/L LEGS ). negative: Respond to painful stimul, Responsive, Numbness, Sensory Deficit Deep Tendon Reflexes: Knee (L): 4+, Knee (R): 4+ Medical Decision Making - Medical Decision Making 02/12/17 14:27 Patient is a 31-year-old male with a history of lower back pain from high school football injury here today with lower back pain that radiates down his left buttocks to his left lateral leg. Patient denies any weakness of legs or any numbness of legs or any saddle anesthesia or incontinency. Patient denies doing any heavy lifting or exercise. Patient reports the pain is worse with walking and is presently an 8 out of 10. Patient also reports feels muscle spasming lower back. Patient reports taking ibuprofen yesterday that helps with the pain. Patient has not been followed by an orthopedist. LOWER BACK PAIN WITH RADICULOPATHY LEFT BUTTOCK LEFT THIGH PLAN: TORADOL 60 MG IM NOW VALIUM 5MG PO NOW XRAY SPINE LUMBAR/SACRAL MILD DISC NARROWING AT L4-L5. NEEDS MRI FOR FURTHER EVALUATION TO SEE IF THERE IS A DISC HERNIATION PER DR DINH FOLLOW UP WITH ORTHOPEDIST 02/12/17 14:48 02/12/17 15:32 feeling improved naprosyn 500 mg bid prn # 14 tabs flexeril 10 mg q8 hrs muscle spasm # 21 *DC/Admit/Observation/Transfer Diagnosis at time of Disposition: Lumbar pain with radiation down left leg - Discharge Dispostion Disposition: HOME Condition at time of disposition: Stable - Prescriptions Prescriptions: Cyclobenzaprine HCl [Flexeril 10 mg] 10 mg PO Q8H PRN #20 tablet PRN Reason: Muscle Spasms Naproxen [Naprosyn -] 500 mg PO BID PRN #14 tablet PRN Reason: Pain - Referrals Referrals: Dave Vera MD [Staff Physician] - - Patient Instructions Additional Instructions: Avoid any exercise or lifting Return to emergency department with any increased pain, increased radiation down leg. Any numbness of legs or groin , or loss of control of bowel or bladder movements. Follow up with orthopedist as soon as possible Take Ibuprofen as needed as directed by vacation sales advisor Patient voiced understanding of discharge instructions and all questions were answered Thank you for choosing [facility] for you medical care.
[2017-02-12] MEDS ORDERED: diazePAM 5 MG TABLET ONE (14:17)
== END 2017-02-12 15:37 | disposition home or self-care (01) ==
LOC: JERFT 13:22
PROC: 3E0233Z Introduction of Anti-inflammatory into Muscle, Percutaneous Approach (ICD-10-PCS; principal; 2017-02-12)
DX: M54.16 Radiculopathy, lumbar region (principal)
CPT/HCPCS: 72100-TC; 99281-25

== ENCOUNTER 2017-03-14 10:12 | Emergency (ER) | payer OTHER ==
[2017-03-14 10:25] VITALS: BP 134/81; PULSE 84; TEMP 98.3; BMI 33.4
[2017-03-14] MEDS ORDERED: SULFAMETHOXAZOLE/TRIMETHOPRIM 800MG/160MG D.S. TABLET PO ONE (11:53)
--- NOTE | 2017-03-14 11:58 | PDOC ---
History of Present Illness - General Chief Complaint: Bite Stated Complaint: BITE left foot Time Seen by Provider: 03/14/17 11:44 History Source: Patient Exam Limitations: No Limitations - History of Present Illness Initial Comments: 03/14/17 11:53 Patient came for evaluation of left foot swelling with lesion midpoint. noted Monday afternoon an acute onset of itchiness and swelling consistent with some type of insect bite. Since that time has continued to be itching however noticed more swelling to his left foot and to the lesion. has had extensive problems with his left leg related to trauma and ended up with admission and IV antibiotics for traumatic cellulitis because of request injury some years ago. Since that time has had multiple issues with swelling, infections and circulation problems. Has followed up with surgeon who has waited for varicosities and circulatory problems with no result. Occurred: reports: just prior to arrival Severity: reports: moderate Pain Location: reports: lower extremity (left foot ) Method of Injury: Yes: unknown Modifying Factors: improves with: None Loss of Consciousness: no loss of consciousness Associated Symptoms (Fall): denies symptoms Past History - Travel Traveled outside of the country in the last 30 days: No Close contact w/someone who was outside of country & ill: No - Past Medical History Allergies/Adverse Reactions: Allergies Allergy/AdvReac Type Severity Reaction Status Date / Time shrimp Allergy Swelling Verified 03/14/17 10:25 Home Medications: Ambulatory Orders Fluconazole [Diflucan] 150 mg PO ONCE #2 tablet 03/14/17 Sulfamethoxazole/Trimethoprim [Bactrim *Ds*] 1 each PO BID #14 tablet 03/14/17 Other medical history: obesity - Surgical History Orthopedic Surgery: Yes (RT LEG FX) - Immunization History Immunization Up to Date: Yes - Suicide/Smoking/Psychosocial Hx Smoking History: Current every day smoker Have you smoked in the past 12 months: Yes Number of Cigarettes Smoked Daily: 5 Information on smoking cessation initiated: Yes 'Breaking Loose' booklet given: 03/14/17 Hx Alcohol Use: No Drug/Substance Use Hx: No Substance Use Type: None Hx Substance Use Treatment: No Review of Systems - Review of Systems Able to Perform ROS?: Yes Is the patient limited [place] proficient: Yes Constitutional: Yes: Symptoms Reported, See HPI Musculoskeletal: Yes: Symptoms Reported, Joint Swelling, Muscle Pain, Joint Stiffness (right ankle/ foot ) Integumentary: Yes: Symptoms Reported, See HPI, Lesions Neurological: Yes: Symptoms reported All Other Systems: Reviewed and Negative *Physical Exam - Vital Signs Last Vital Signs Temp Pulse Resp BP Pulse Ox 98.3 F 84 19 134/81 99 03/14/17 10:23 03/14/17 10:23 03/14/17 10:23 03/14/17 10:23 03/14/17 10:23 - Physical Exam General Appearance: Yes: Nourished, Appropriately Dressed, Apparent Distress, Mild Distress HEENT: positive: FLORA, Normal ENT Inspection, TMs Normal, Pharynx Normal Neck: positive: Supple. negative: Tender, Lymphadenopathy (R), Lymphadenopathy (L) Respiratory/Chest: positive: Lungs Clear, Normal Breath Sounds Musculoskeletal: negative: Normal Inspection Extremity: positive: Tender, Erythema (pointing but not fluctuant eczema noted to dorsum of foot, without streaking. Is mildly tender, but does not appear abscesses consolidated. Full range of motion at toes). 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 Patient has chronic swelling status post history of traumatic cellulitis of left leg. We will treat conservatively as opening wound with poor circulation May worsened the cellulitic appearance and infection. Started on Bactrim and given first dose here. Encouraged to take a few days off, highly elevate, soak foot as often as possible in bleach baths to help curb tinea noted in the fifth and fourth interdigital fold and small lesion on dorsum of foot. Encouraged to return to emergency department if foot erythema worsens, streaking occurs, fevers or worsened pain for cellulitis *DC/Admit/Observation/Transfer Diagnosis at time of Disposition: Cellulitis of left foot - Discharge Dispostion Disposition: HOME Condition at time of disposition: Stable Admit: No - Prescriptions Prescriptions: Sulfamethoxazole/Trimethoprim [Bactrim *Ds*] 1 each PO BID #14 tablet Fluconazole [Diflucan] 150 mg PO ONCE #2 tablet - Patient Instructions Printed Discharge Instructions: How to Care for an Insect Bite or Sting Additional Instructions: Rest, keep area elevated. Avoid strenuous activity or exercise until wound is healed Use hot soaks to area to bring more blood to the surface and encourage drainage Use one capful of bleach in 2 gallons of water and soak foot 2-4 times a day to help assist with yeast infection and wound of foot May change dressings as needed to keep clean I Allow water from shower to wash area thoroughly for 2-3 minutes, and pat dry upon exit of shower and replace dressing. Change his dressing daily until the wound is completely healed. May use Tylenol or Motrin for mild pain relief Use stronger medications as directed and prescribed Continue all medications as prescribed Followup with private physician in 2-3 days for wound check Return to emergency Department for worsening swelling, pain, redness, fevers as needed I flew can 150 mg tablets times once, if no result or not healed May repeat in one week. - Post Discharge Activity Forms/Work/School Notes: Back to Work
[2017-03-14] MEDS ORDERED: SULFAMETHOXAZOLE/TRIMETHOPRIM 800MG/160MG D.S. TABLET ONE (11:59)
== END 2017-03-14 12:13 | disposition home or self-care (01) ==
LOC: JERFT 10:12
DX: L03.116 Cellulitis of left lower limb (principal)
CPT/HCPCS: 99281-25

== ENCOUNTER 2017-05-07 10:27 | Emergency (ER) | payer OTHER ==
[2017-05-07 10:31] VITALS: TEMP 99; BMI 34.2
--- NOTE | 2017-05-07 10:35 | PDOC ---
History of Present Illness - General History Source: Patient Exam Limitations: No Limitations - History of Present Illness Initial Comments: 05/07/17 10:49 The patient is a 32 year old male, with no significant past medical history who presents to the emergency department with LLE redness since last night. The patient reports having cellulitis in the past about 6 months ago. He denies any cuts on the bottom of his foot. He reports being bit by a spider 3 weeks prior. He denies any recent fevers, chills, headache or dizziness. He denies any recent nausea, vomit, diarrhea or constipation. He denies any recent chest pain or shortness of breath. He denies any recent dysuria, frequency, urgency or hematuria. Allergies: NKA Past surgical history: None reported. Social History: Nonsmoker. Denies EtOH use and recreational drug use. <Shad Moffett - Last Filed: 05/07/17 10:49> <Justyn Ortiz - Last Filed: 05/07/17 12:37> - General Chief Complaint: Redness To Affected Area Stated Complaint: LT LEG PAIN Time Seen by Provider: 05/07/17 10:35 Past History <Shad Moffett - Last Filed: 05/07/17 10:49> - Past Medical History COPD: No - Surgical History Orthopedic Surgery: Yes (RT LEG FX) - Immunization History Immunization Up to Date: Yes - Suicide/Smoking/Psychosocial Hx Smoking History: Current every day smoker Have you smoked in the past 12 months: Yes Number of Cigarettes Smoked Daily: 5 Information on smoking cessation initiated: Yes 'Breaking Loose' booklet given: 05/07/17 Hx Alcohol Use: Yes (SOCIAL) Drug/Substance Use Hx: No Substance Use Type: None Hx Substance Use Treatment: No <Justyn Ortiz - Last Filed: 05/07/17 12:37> - Past Medical History Allergies/Adverse Reactions: Allergies Allergy/AdvReac Type Severity Reaction Status Date / Time No Known Drug Allergies Allergy Verified 05/07/17 10:47 shrimp Allergy Swelling Verified 05/07/17 10:47 Home Medications: Ambulatory Orders Clindamycin [Cleocin -] 300 mg PO QID #40 capsule 05/07/17 Sulfamethoxazole/Trimethoprim [Bactrim Ds Tablet] 1 each PO BID #20 tablet 05/07 Review of Systems - Review of Systems Able to Perform ROS?: Yes Comments:: 05/07/17 10:49 GENERAL/CONSTITUTIONAL: No fever or chills. No weakness. HEAD, EYES, EARS, NOSE AND THROAT: No change in vision. No ear pain or discharge. No sore throat. CARDIOVASCULAR: No chest pain or shortness of breath. RESPIRATORY: No cough, wheezing, or hemoptysis. GASTROINTESTINAL: No nausea, vomiting, diarrhea or constipation. GENITOURINARY: No dysuria, frequency, or change in urination. MUSCULOSKELETAL:+LE redness. No joint or muscle swelling or pain. No neck or back pain. SKIN: No rash NEUROLOGIC: No headache, vertigo, loss of consciousness, or change in strength/ sensation. ENDOCRINE: No increased thirst. No abnormal weight change. HEMATOLOGIC/LYMPHATIC: No anemia, easy bleeding, or history of blood clots. ALLERGIC/IMMUNOLOGIC: No hives or skin allergy. <Shad Moffett - Last Filed: 05/07/17 10:49> *Physical Exam - Vital Signs Last Vital Signs Temp Pulse Resp BP Pulse Ox 99.0 F 115 H 20 132/95 96 05/07/17 10:28 05/07/17 10:28 05/07/17 10:28 05/07/17 10:28 05/07/17 10:28 - Physical Exam Comments: 05/07/17 10:49 GENERAL: Awake, alert, and fully oriented, in no acute distress HEAD: No signs of trauma EYES: PERRLA, EOMI, sclera anicteric, conjunctiva clear ENT: Auricles normal inspection, hearing grossly normal, nares patent, oropharynx clear without exudates. Moist mucosa NECK: Normal ROM, supple, no lymphadenopathy, JVD, or masses LUNGS: Breath sounds equal, clear to auscultation bilaterally. No wheezes, and no crackles HEART: Regular rate and rhythm, normal S1 and S2, no murmurs, rubs or gallops ABDOMEN: Soft, nontender, normoactive bowel sounds. No guarding, no rebound. No masses EXTREMITIES: Normal range of motion, no edema. LEFT LEG:Some calf tenderness. Anterior swelling and redness bilaterally on either side of the tibia. Mild lymphangitis. NEUROLOGICAL: Cranial nerves II through XII grossly intact. Normal speech, normal gait SKIN: Warm, Dry, normal turgor, no rashes or lesions noted. <Shad Moffett - Last Filed: 05/07/17 10:49> - Vital Signs Last Vital Signs Temp Pulse Resp BP Pulse Ox 99.0 F 115 H 20 132/95 96 05/07/17 10:28 05/07/17 10:28 05/07/17 10:28 05/07/17 10:28 05/07/17 10:28 <Justyn Ortiz - Last Filed: 05/07/17 12:37> ED Treatment Course - LABORATORY CBC & Chemistry Diagram: 05/07/17 11:15 05/07/17 11:15 <Justyn Ortiz - Last Filed: 05/07/17 12:37> *DC/Admit/Observation/Transfer - Attestations Scribe Attestion: 05/07/17 10:50 Documentation prepared by Shad Moffett, acting as medical review specialist for Justyn Ortiz MD/. <Shad Moffett - Last Filed: 05/07/17 10:49> - Discharge Dispostion Admit: No - Attestations Physician Attestion: 05/07/17 10:35 I, Dr. Justyn Ortiz, attest that this document has been prepared under my direction and personally reviewed by me in its entirety. I further attest, that it accurately reflects all work, treatment, procedures and medical decision -making performed by me. <Justyn Ortiz - Last Filed: 05/07/17 12:37> Diagnosis at time of Disposition: Left leg cellulitis Cellulitis Qualifiers: Site of cellulitis: extremity Site of cellulitis of extremity: lower extremity Laterality: left Qualified Code(s): L03.116 - Cellulitis of left lower limb - Discharge Dispostion Disposition: HOME Condition at time of disposition: Improved - Prescriptions Prescriptions: Clindamycin [Cleocin -] 300 mg PO QID #40 capsule Sulfamethoxazole/Trimethoprim [Bactrim Ds Tablet] 1 each PO BID #20 tablet - Patient Instructions Printed Discharge Instructions: DI for Cellulitis -- Adult Additional Instructions: Ran- Sorry that this is happening again. Get new shoes and always wear white cotton sox. Treat that athletes foot so that there are no cracks in the skin to allow bacteria to cause this cellulitis. Follow up with your regular doctor, return to us if worse or new symptoms or it spreads up your leg. Best- Dr. Justyn Ortiz - Post Discharge Activity Forms/Work/School Notes: Back to Work
[2017-05-07] MEDS ORDERED: CLINDAMYCIN 900 MG PREMIX IVPB 900 MG/50 ML BAG IVPB ONE ×2 (10:52→11:11)
[2017-05-07 11:23] LABS: MCH 27.7 pg (25.7-33.7); MCHC 33.2 g/dl (32.0-35.9); MEAN CELL VOLUME 83.5 fl (80-96); MEAN PLT VOLUME 6.9 fl (7.5-11.1); PLATELET COUNT 238 K/MM3 (134-434); RDW 14.1 % (11.9-15.9); WHITE BLOOD COUNT 25.9 K/mm3 (4.0-10.0)
[2017-05-07 11:36] LABS: INR 1.19 (0.82-1.09); PROTHROMBIN TIME (PATIENT) 13.5 SEC (9.98-11.88)
[2017-05-07 11:56] LABS: ALBUMIN 3.8 g/dl (3.4-5.0); ALK PHOS 59 U/L (45-117); ANION GAP 8 (8-16); BILIRUBIN,TOTAL 1.1 mg/dL (0.2-1.0); CALCIUM 9.1 mg/dL (8.5-10.1); CO2 29 mmol/L (21-32); CREATININE 1.1 mg/dL (0.7-1.3); GLUCOSE,RANDOM 93 mg/dL (74-106); SGOT/AST 16 U/L (15-37); SGPT/ALT 37 U/L (12-78); TOT PROT 7.2 g/dl (6.4-8.2)
[2017-05-07] MEDS ORDERED: SULFAMETHOXAZOLE/TRIMETHOPRIM 800MG/160MG D.S. TABLET PO ONE (12:29)
[2017-05-07] MEDS ORDERED: SULFAMETHOXAZOLE/TRIMETHOPRIM 800MG/160MG D.S. TABLET ONE (12:42)
[2017-05-07 12:46] LABS: TOTAL CELLS COUNTED 100
[2017-05-07 12:48] LABS: PLATELET ESTIMATE ADEQUATE
[2017-05-07 12:49] VITALS: BP 120/92; PULSE 82
== END 2017-05-07 12:48 | disposition home or self-care (01) ==
LOC: JER 10:27
DX: L03.116 Cellulitis of left lower limb (principal)
CPT/HCPCS: 36415; 80053; 85025; 85610; 87040; 93971-TC; 99282-25

== ENCOUNTER 2020-03-19 11:07 | Emergency (ER) | payer OTHER ==
--- OUTSIDE RECORDS SUMMARY | 2020-03-19 11:13 | XMS ---
:1985 Author Organization [facility] Support Name Relationship Address Phone [facility] [facility] Unavailable [address] [place] [address] [employer] [address] [place] [address] Re-disclosure Warning The records that you are about to access may contain information from federally- assisted alcohol or drug abuse programs. If such information is present, then the following federally mandated warning applies: This information has been disclosed to you from records protected by federal confidentiality rules (42 CFR part 2). The federal rules prohibit you from making any further disclosure of this information unless further disclosure is expressly permitted by the written consent of the person to whom it pertains or as otherwise permitted by 42 CFR part 2. A general authorization for the release of medical or other information is NOT sufficient for this purpose. The Federal rules restrict any use of the information to criminally investigate or prosecute any alcohol or drug abuse patient.The records that you are about to access may contain highly sensitive health information, the redisclosure of which is protected by Article 27-F of the [facility] Public Health law. If you continue you may haveaccess to information: Regarding HIV / AIDS; Provided by facilities licensed or operated by the [facility] Office of Mental Health; or Provided by the [facility] Office for People With Developmental Disabilities. If such information is present, then the following [facility] mandated warning applies: This information has been disclosed to you from confidential records which are protected by state law. State law prohibits you from making any further disclosure of this information without the specific written consent of the person to whom it pertains, or as otherwise permitted by law. Any unauthorized further disclosure in violation of state law may result in a fine or care home sentence or both. A general authorization for the release of medical or other information is NOT sufficient authorization for further disclosure. Insurance Providers Payer name Policy type Policy ID Covered Covered alliance party's Policy P sultana / Coverage alliance party ID relationship to Deal Inf ormation type deal [employer] MEDICA[employer] [id number]
--- NOTE | 2020-03-19 11:40 | TELE ---
HPI Do you have fever,cough or shortness of breath?: Yes - General Reason For Visit: COVID 19 TEST History Source: Patient (35-year-old male with no past medical history presents via telehealth for Covid testing.) Exam Limitations: No Limitations - History of Present Illness Timing/Duration: 1 week, other (2 days ago) Severity: reports: mild Associated Symptoms: reports: cough, other (nasal congestion) Past History - Travel History Traveled outside of the country in the last 30 days: No Close contact w/someone who was outside of country & ill: No - Medical History Allergies/Adverse Reactions: Allergies Allergy/AdvReac Type Severity Reaction Status Date / Time No Known Drug Allergies Allergy Verified 05/07/17 10:47 shrimp Allergy Swelling Verified 05/07/17 10:47 Home Medications: Ambulatory Orders Clindamycin [Cleocin -] 300 mg PO QID #40 capsule 05/07/17 Sulfamethoxazole/Trimethoprim [Bactrim Ds Tablet] 1 each PO BID #20 tablet 05/07/17 COPD: No - Surgical History Orthopedic Surgery: Yes (RT LEG FX) - Immunization History Immunization Up to Date: Yes - Psycho-Social/Smoking History Patient Lives Alone: No Lives with/in: spouse/SO Smoking History: Current every day smoker Have you smoked in the past 12 months: Yes Number of Cigarettes Smoked Daily: 5 'Breaking Loose' booklet given: 05/07/17 Review of Systems - Review of Systems Able to Perform ROS?: Yes Constitutional: No: Symptoms Reported HEENTM: Yes: Nose Congestion Respiratory: Yes: Cough Cardiac (ROS): No: Symptoms Reported ABD/GI: No: Symptoms Reported : No: Symptoms Reported Musculoskeletal: No: Symptoms Reported Integumentary: No: Symptoms Reported Neurological: No: Symptoms reported Endocrine: No: Symptoms Reported Hematologic/Lymphatic: No: Symptoms Reported *Physical Exam - Physical Exam General Appearance: Yes: Nourished, Appropriately Dressed. No: Apparent Distress HEENT: positive: EOMI Neck: negative: Decreased range of motion Respiratory/Chest: negative: Respiratory Distress, Accessory Muscle Use Gastrointestinal/Abdominal: negative: Distended Extremity: positive: Normal Inspection Integumentary: positive: Normal Color Neurologic: positive: Motor Strength 5/5 (ambulatory) - Medical Decision Making 03/19/20 11:39 Chief complaint: Patient requesting Covid testing for nasal congestion and cough. For the past 2 days days exam: Limited but otherwise normal. Plan: Covid and antibodies ordered as per patient's request Discharge Diagnosis at time of Disposition: Encounter for laboratory testing for COVID-19 virus - Referrals - Patient Instructions - Discharge Disposition: HOME Condition at time of Disposition: Good
== END 2020-03-19 11:40 | disposition home or self-care (01) ==
LOC: JVIRT 11:07
DX: Z03.818 Encounter for observation for suspected exposure to other biological agents ruled out (principal); Z01.84 Encounter for antibody response examination
CPT/HCPCS: 36415; 86769; C9803; Q3014-GT; U0003

== ENCOUNTER 2020-05-19 12:11 | Emergency (ER) | payer OTHER ==
[2020-05-19 12:26] VITALS: PULSE 89; TEMP 98; BMI 34.9
[2020-05-19] MEDS ORDERED: diazePAM 5 MG TABLET PO ONE (13:33)
[2020-05-19] MEDS ORDERED: KETOROLAC TROMETHAMINE 30 MG/1 ML VIAL IM ONE (13:33)
[2020-05-19] MEDS ORDERED: KETOROLAC TROMETHAMINE 30 MG/1 ML VIAL ONE (13:39)
[2020-05-19] MEDS ORDERED: diazePAM 5 MG TABLET ONE (13:40)
[2020-05-19 15:03] VITALS: BP 152/110
== END 2020-05-19 15:23 | disposition home or self-care (01) ==
LOC: JERFT 12:11
PROC: 3E0233Z Introduction of Anti-inflammatory into Muscle, Percutaneous Approach (ICD-10-PCS; principal; 2020-05-19)
DX: M43.6 Torticollis (principal)
CPT/HCPCS: 99284-25

== ENCOUNTER 2022-06-13 08:25 | Emergency (ER) | payer SELFPAY ==
[2022-06-13 08:46] VITALS: BP 153/91; PULSE 101; RESP 18; TEMP 98.7; BMI 42.5
== END 2022-06-13 10:59 | disposition home or self-care (01) ==
LOC: JER 08:25 → JERFT 08:25
DX: R00.2 Palpitations (principal)
CPT/HCPCS: 93005; 93010; 99283-25